=== PATIENT | female | born 1950 | race Caucasian/White ===

== ENCOUNTER 2019-02-22 06:11 | Day surgery (SDC) | payer MEDICARE, OTHER ==
[~2019-02-22] VITALS: Ht 147.3 cm; Wt 57.6 kg
[~2019-02-22 06:11] MED LIST: ASPI-817 PO; ATOR10TA65 PO; CALC667C PO; CLONIDINE; FOLI-49 PO; GABA300C PO; HYDR-3671 PO; LANT3I SC; LINA145C PO; LOSA25TA12 PO; MINO2.5T16 PO; NEPH PO; NIFE60TA18 PO; NOVO3I SC
[2019-02-22 06:51] VITALS: Ht 147.3 cm; Wt 57.6 kg
[2019-02-22 07:40] VITALS: BP 203/83; PULSE 77; RESP 30
[2019-02-22] MEDS ORDERED: LIDOCAINE 100 MG SYRINGE ONE (07:42)
[2019-02-22] MEDS ORDERED: PROPOFOL 20 ML ONE (07:42)
[2019-02-22] MEDS ORDERED: FENTAnyl 50 MCG/ML VIAL ONE (07:42)
--- NOTE | 2019-02-22 07:49 | PREAC ---
Date/Time of Note Date/Time of Note DATE: 02/22/19 TIME: 07:47 Anesthesia Eval and Record Evaluation Time Pre-Procedure Interview DATE: 02/22/19 TIME: 07:47 Age 69 Sex female NPO: 8 hrs Preoperative diagnosis weight loss Planned procedure egd Past Medical History Past Medical History: Includes Cardio: HTN Endo: Diabetes Renal: ESRD on dialysis Surgery & Anesthesia Issues No known issue Meds Anticoagulation: No Beta Lamin within 24 hr: No Reason Beta Lamin not given: Pt. not on B-Lamin Active Scripts Insulin Aspart* (Novolog Insulin Pen*) 100 Unit/Ml Soln, 0 UNIT SC WITH MEALS BEDTIME, #1 BOX Prov:FLAKO WADSWORTH MD 09/28/14 Reported Medications [Clonodine] No Conflict Check, 0.1 PRN 02/22/19 Insulin Glargine* (Lantus*) 100 Unit/Ml Soln, 10 UNIT SC DAILY, EA 06/07/15 Gabapentin* (Neurontin*) 300 Mg Capsule, 300 MG PO DAILY, CAP 06/07/15 Folic Acid* (Folic Acid*) 1 Mg Tablet, 1 MG PO DAILY, TAB 06/07/15 Calcium Acetate* (Calcium Acetate*) 667 Mg Capsule, 667 MG PO WITH MEALS, CAP 06/07/15 Nifedipine* (Nifedipine ER*) 60 Mg Tablet.sa, 60 MG PO BID, TAB.SA 06/07/15 Hydralazine Hcl* (Hydralazine Hcl*) 25 Mg Tab, 25 MG PO Q6, TAB 12/04/14 Atorvastatin Calcium (Atorvastatin Calcium) 10 Mg Tab, 10 MG PO HS, TAB 12/04/14 Multivit/Ca Carb/B Cmplx/Fa* (Antonina-Soledad*) 1 Tab Tab, 1 TAB PO DAILY, TAB 01/05/14 Aspirin* (Aspirin* EC) 81 Mg Tablet.dr, 81 MG PO DAILY 09/20/11 Discontinued Reported Medications Linaclotide (LINZESS) 145 Mcg Capsule, 145 MCG PO DAILY 12/04/14 Minoxidil* (Lonitin*) 2.5 Mg Tab, 2.5 MG PO DAILY, TAB 12/04/14 Losartan Potassium* (Losartan Potassium*) 25 Mg Tablet, 25 MG PO DAILY, TAB 12/04/14 Meds reviewed: Yes Allergies Coded Allergies: No Known Allergy (Unverified , 06/07/15) Allergies Reviewed: Yes Labs/Studies Labs Reviewed: Reviewed by anesthesiologist test: N/A Pre-procedure Exam Last vitals Vital Signs Date Temp Pulse Resp B/P (MAP) Pulse Ox O2 O2 Flow FiO2 Time Delivery Rate 02/22/19 97.7 77 30 203/83 98 Room Air 07:40 (123) Airway: Adequate mouth opening, Adequate thyromental dist Mallampati: Mallampati II Teeth: Abnormal (DENTURES) Lung: Normal Heart: Normal ASA Physical Status ASA physical status: 4 Emergency: None Planned Anesthetic General/MAC: MAC Planned Pain Management Parenteral pain med Pre-operative Attestations Prior to commencing anesthesia and surgery, the patient was re-evaluated, there was verification of: *The patient's identity *The results of appropriate recent lab work and preoperative vital signs *The above evaluation not changing prior to induction *Anesthetic plan, risk benefits, alternative and complications discussed with patient/family; questions answered; patient/family understands, accepts and wishes to proceed. Richard Santizo M.D. Feb 22, 2019 07:49
[2019-02-22] MEDS ORDERED: hydrALAzine 20 MG INJ ONE (08:19)
--- NOTE | 2019-02-22 09:02 | PAC ---
Date/Time of Note Date/Time of Note DATE: 02/22/19 TIME: 09:02 Post-Anesthesia Notes Post-Anesthesia Note Last documented vital signs Vital Signs Date Temp Pulse Resp B/P (MAP) Pulse Ox O2 O2 Flow FiO2 Time Delivery Rate 02/22/19 97.7 77 30 203/83 98 Room Air 07:40 (123) Activity: WNL Respiratory function: WNL Cardiovascular function: WNL Mental status: Baseline Pain reasonably controlled: Yes Hydration appropriate: Yes Nausea/Vomiting absent: Yes Richard Santizo M.D. Feb 22, 2019 09:02
[2019-02-22 09:08] VITALS: BP 169/71; PULSE 69; RESP 16
== END 2019-02-22 13:04 | disposition home or self-care (01) ==
LOC: GIL 06:11
PROVIDERS: ATTEND Internal Medicine Gastroenterology
DX: K29.50 Unspecified chronic gastritis without bleeding (principal); E11.9 Type 2 diabetes mellitus without complications; Z79.82 Long term (current) use of aspirin; Z79.4 Long term (current) use of insulin; I12.0 Hypertensive chronic kidney disease with stage 5 chronic kidney disease or end stage renal disease; N18.6 End stage renal disease; Z99.2 Dependence on renal dialysis
CPT/HCPCS: 43239; 82962; 84132; 88305; 88312; J0360; J2001; J3010